=== PATIENT | male | born 1960 | race Caucasian/White ===

== ENCOUNTER 2022-08-05 09:11 | Observation (INO) ==
[2022-08-05] MEDS ORDERED: methylPREDNISolone SOD SUCC 125 mg 2 ML VIAL IV ONE (09:21)
[2022-08-05] MEDS ORDERED: Magnesium Sulfate 2 gm BAG 2 GM/50 ML BAG IVPB ONE (09:29)
[2022-08-05 09:46] LABS: PCO2 Arterial 46 mmHg (35-45); PO2 Arterial 84 mmHg (80-100)
[2022-08-05 09:47] LABS: Hematocrit 43 % (42-52); Hemoglobin 14.6 g/dL (14.0-18.0); Mean Corpuscular Hemoglobin 30 pg (27-31); Mean Corpuscular Hgb Conc 34 g/dL (31-36); Mean Corpuscular Volume 90 fL (80-94); Mean Platelet Volume 7.8 fL (7.4-10.4); Platelet Count 387 10^3/uL (150-450); Red Blood Count 4.83 10^6 /uL (4.18-5.48); Red Cell Distribution Width 15 % (10-15); White Blood Count 29.1 10^3/uL (3.5-10.8)
[2022-08-05 10:07] LABS: ABS Basophils 0.1 10^3/ul (0-0.2); ABS Eosinophils 0.2 10^3/ul (0-0.6); ABS Lymphocytes 4.4 10^3/ul (1.0-4.8); ABS Monocytes 1.2 10^3/ul (0-0.8); ABS Neutrophils 23.2 10^3/ul (1.5-7.7); Eosinophil % 0.7 %; Lymphocyte % 15.1 %; Nucleated Red Blood Cells % 0.1
[2022-08-05] MEDS ORDERED: Lactated Ringers 1000 ml BAG 1,000 ML IV ONE (10:11)
[2022-08-05 10:34] LABS: Albumin 4.2 g/dL (3.2-5.2); Calcium 9.1 mg/dL (8.6-10.3); Creatinine, Serum 0.78 mg/dL (0.67-1.17); Globulin 2.1 g/dL (2-4); Magnesium 1.9 mg/dL (1.9-2.7); Potassium 4.4 mmol/L (3.5-5.0); Total Bilirubin 0.5 mg/dL (0.2-1.0); Total Protein 6.3 g/dL (6.4-8.9); eGFR CKD-EPI 102.1 (>60)
[2022-08-05 11:20] LABS: High Sensitivity Troponin 1 Hr 96 pg/mL (<20)
[2022-08-05 13:14] LABS: C Reactive Protein 3.74 mg/L (<8.01)
[2022-08-05] MEDS ORDERED: Albuterol/Ipratropium NEB.SOL (2.5/0.5 MG) 3 ML NEB.SOLN INH ONE (15:24)
[2022-08-05] MEDS ORDERED: Levalbuterol 1.25MG/0.5ML NEB.SOL INH PRN (15:24)
[2022-08-05] MEDS ORDERED: cefTRIAXone 1 gm/50 mL D5W 1 GM/50 ML BAG IV SCH (15:30)
[2022-08-05 15:32] LABS: High Sensitivity Troponin 3 Hr 226 pg/mL (<20)
[2022-08-05] MEDS ORDERED: Azithromycin 500 mg/250 ml NS 500 MG/250 ML BAG IVPB SCH (16:00)
[2022-08-05] MEDS ORDERED: HYDROCODONE ACETAMINOPHEN PO PRN (16:28)
[2022-08-05] MEDS: oxyCODONE/Acetamin 5/325 mg TAB PO PRN ×2 (16:42→23:43)
[2022-08-05] MEDS: methylPREDNISolone SOD SUCC 40 mg/ml 1 ml VIAL IV SCH (16:43)
[2022-08-05] MEDS ORDERED: Enoxaparin 40 MG/0.4 ML SYR SUBCUT SCH (18:00)
[2022-08-06] MEDS: Albuterol/Ipratropium NEB.SOL (2.5/0.5 MG) 3 ML NEB.SOLN INH SCH ×4 (00:46→21:22)
[2022-08-06] MEDS: methylPREDNISolone SOD SUCC 40 mg/ml 1 ml VIAL IV SCH ×2 (00:51→09:00)
[2022-08-06] MEDS: CMCS: Meloxicam 7.5 mg TAB (NF) PO SCH ×2 (00:51→09:00)
[2022-08-06 06:03] LABS: ABS Lymphocytes 1.3 10^3/ul (1.0-4.8); ABS Monocytes 0.4 10^3/ul (0-0.8); Hematocrit 40 % (42-52); Hemoglobin 13.1 g/dL (14.0-18.0); Lymphocyte % 6.4 %; Mean Corpuscular Hemoglobin 30 pg (27-31); Mean Corpuscular Hgb Conc 33 g/dL (31-36); Mean Corpuscular Volume 90 fL (80-94); Mean Platelet Volume 7.6 fL (7.4-10.4); Platelet Count 329 10^3/uL (150-450); Red Blood Count 4.43 10^6 /uL (4.18-5.48); Red Cell Distribution Width 14 % (10-15); White Blood Count 19.7 10^3/uL (3.5-10.8)
[2022-08-06 06:57] LABS: Calcium 9.2 mg/dL (8.6-10.3); Creatinine, Serum 0.68 mg/dL (0.67-1.17); Magnesium 2.2 mg/dL (1.9-2.7); Potassium 4.5 mmol/L (3.5-5.0); eGFR CKD-EPI 106.4 (>60)
[2022-08-06] MEDS ORDERED: Senna TAB 8.6 mg TAB PO SCH (09:00)
[2022-08-06] MEDS ORDERED: Regadenoson 0.4 MG/5 ML SYRINGE ONE ×2 (09:10→12:51)
[2022-08-06] MEDS: oxyCODONE/Acetamin 5/325 mg TAB PO PRN (12:09)
[2022-08-06] MEDS ORDERED: Aminophylline 25 MG/ML VIAL ONE (12:51)
[2022-08-06 14:47] VITALS: BP 148/76
[2022-08-07] MEDS: Albuterol/Ipratropium NEB.SOL (2.5/0.5 MG) 3 ML NEB.SOLN INH SCH ×2 (03:28→07:45)
== END 2022-08-06 18:00 | disposition home or self-care (01) ==
LOC: ED 09:11 → EDHOLD 12:46 → SUATTDRO 12:46 → INTOOBSV 12:46 → MEDTELE 08-06 00:28
PROVIDERS: ADMIT Internal Medicine; ATTEND Internal Medicine

== ENCOUNTER 2024-04-01 17:46 | Observation (INO) ==
[2024-04-01] MEDS ORDERED: Albuterol/Ipratropium NEB.SOL (2.5/0.5 MG) 3 ML NEB.SOLN ONE (18:01)
[2024-04-01] MEDS: Albuterol 2.5mg/3 ml (0.083%) NEB.SOLN INH ONE (18:05)
[2024-04-01 18:08] LABS: Venous Bicarbonate HCO3 23.1 mmol/L (24-28)
[2024-04-01 18:15] LABS: Carbon Monoxide <4.0 % (<4.0)
[2024-04-01 18:17] LABS: ABS Basophils 0.1 10^3/uL (0.0-0.1); ABS Eosinophils 0.1 10^3/uL (0.0-0.5); ABS Lymphocytes 4.6 10^3/uL (1.0-4.8); ABS Monocytes 0.8 10^3/uL (0.0-1.1); ABS Neutrophils 13.7 10^3/uL (1.5-7.6); ABS Nucleated RBC 0.02 10^3/ul; Eosinophil % 0.7 %; Hematocrit 46.3 % (38-53); Hemoglobin 15.4 g/dL (13.2-16.3); Lymphocyte % 23.5 %; Mean Corpuscular Hemoglobin 28.7 pg (27-33); Mean Corpuscular Hgb Conc 33.2 g/dL (31-36); Mean Corpuscular Volume 86.5 fL (80-97); Mean Platelet Volume 7.9 fL (7.5-11.2); Nucleated Red Blood Cells % 0.1 %/100WBC (0.0-0.8); Platelet Count 390 10^3/uL (150-450); Red Blood Count 5.35 10^6/uL (4.06-5.63); Red Cell Distribution Width 13.2 % (12-17); White Blood Count 19.4 10^3/uL (3.6-10.2)
[2024-04-01 18:44] LABS: Albumin 4.5 g/dL (3.2-5.2); Albumin/Globulin Ratio 2.1 (1-3); Calcium 9.3 mg/dL (8.6-10.3); Creatinine, Serum 0.98 mg/dL (0.67-1.17); Globulin 2.1 g/dL (2-4); Total Bilirubin 0.2 mg/dL (0.2-1.0); Total Protein 6.6 g/dL (6.4-8.9); eGFR CKD-EPI 87.7 (>60)
[2024-04-01] MEDS: Ondansetron 4 mg VIAL 2 MG/ML 2 ml VIAL IV ONE (18:57)
[2024-04-01 19:55] LABS: High Sensitivity Troponin 1 Hr 235 pg/mL (<20)
[2024-04-01] MEDS: Albuterol 0.5% CONC CONTINUOUS NEB.SOL 5 mg/ml 20 ml BOT INH ONE (20:04)
[2024-04-01] MEDS: Lactated Ringers 1000 ml BAG 1,000 ML IV ONE (23:15)
[2024-04-01] MEDS ORDERED: Sulfur Hexaflouride MICROSPHR 25 MG VIAL IV PRN (23:35)
[2024-04-01] MEDS: Albuterol/Ipratropium NEB.SOL (2.5/0.5 MG) 3 ML NEB.SOLN INH SCH (23:55)
[2024-04-02] MEDS: Enoxaparin 40 MG/0.4 ML SYR SUBCUT SCH (00:18)
[2024-04-02] MEDS: cefTRIAXone 1 gm/50 mL D5W 1 GM/50 ML BAG IV SCH (00:19)
[2024-04-02] MEDS: HYDROcodone/Acetamin 10/325 TAB (NF) PO SCH (01:02)
[2024-04-02] MEDS: Lactated Ringers 1000 ml BAG 1,000 ML IV ONE ×2 (01:04→01:39)
[2024-04-02 02:29] LABS: High Sensitivity Troponin 3 Hr 466 pg/mL (<20)
[2024-04-02 03:24] LABS: ABS Lymphocytes 0.6 10^3/uL (1.0-4.8); ABS Monocytes 0.1 10^3/uL (0.0-1.1); ABS Neutrophils 12.1 10^3/uL (1.5-7.6); ABS Nucleated RBC 0.01 10^3/ul; Hematocrit 42.1 % (38-53); Lymphocyte % 4.4 %; Mean Corpuscular Hgb Conc 33.2 g/dL (31-36); Mean Corpuscular Volume 87.2 fL (80-97); Mean Platelet Volume 8.3 fL (7.5-11.2); Platelet Count 296 10^3/uL (150-450); Red Blood Count 4.83 10^6/uL (4.06-5.63); Red Cell Distribution Width 13.1 % (12-17); White Blood Count 12.8 10^3/uL (3.6-10.2)
[2024-04-02 03:53] LABS: Creatinine, Serum 1.04 mg/dL (0.67-1.17); HDL Cholesterol 43.2 mg/dL; eGFR CKD-EPI 81.7 (>60)
[2024-04-02] MEDS: Heparin DRIP 25,000 UNITS BAG 25,000 UNITS/250 ML BAG IV SCH (03:53)
[2024-04-02] MEDS: Heparin 5000 UNITS/ML 1 mL VIAL IV SCH (03:56)
[2024-04-02] MEDS: Albuterol/Ipratropium NEB.SOL (2.5/0.5 MG) 3 ML NEB.SOLN INH SCH ×2 (07:21→19:32)
[2024-04-02] MEDS: Meloxicam 7.5 mg TAB (NF) PO SCH (08:50)
[2024-04-02] MEDS: CMCS: Roflumilast 500 mcg TAB (NF) PO SCH (08:55)
[2024-04-02 18:00] LABS: High Sensitivity Troponin 1 Hr 241 pg/mL (<20)
[2024-04-03 06:27] LABS: ABS Lymphocytes 1.5 10^3/uL (1.0-4.8); ABS Monocytes 0.7 10^3/uL (0.0-1.1); ABS Neutrophils 15.2 10^3/uL (1.5-7.6); ABS Nucleated RBC 0.01 10^3/ul; Eosinophil % 0.1 %; Hematocrit 41.3 % (38-53); Hemoglobin 13.9 g/dL (13.2-16.3); Lymphocyte % 8.8 %; Mean Corpuscular Hemoglobin 28.9 pg (27-33); Mean Corpuscular Hgb Conc 33.6 g/dL (31-36); Mean Corpuscular Volume 85.9 fL (80-97); Mean Platelet Volume 7.9 fL (7.5-11.2); Platelet Count 328 10^3/uL (150-450); Red Blood Count 4.81 10^6/uL (4.06-5.63); Red Cell Distribution Width 13.5 % (12-17); White Blood Count 17.4 10^3/uL (3.6-10.2)
[2024-04-03] MEDS: Albuterol/Ipratropium NEB.SOL (2.5/0.5 MG) 3 ML NEB.SOLN INH SCH (07:11)
[2024-04-03] MEDS ORDERED: Aminophylline 25 MG/ML VIAL ONE (09:11)
[2024-04-03] MEDS ORDERED: Regadenoson 0.4 MG/5 ML SYRINGE ONE (09:11)
[2024-04-03 14:09] VITALS: BP 133/58
== END 2024-04-03 16:00 | disposition home or self-care (01) ==
LOC: ED 17:46 → EDHOLD 17:46 → MEDTELE 22:43
PROVIDERS: ADMIT Internal Medicine; ATTEND Hospitalist